=== PATIENT | female | born 1990 | race Hispanic/Latino ===

== ENCOUNTER 2017-01-31 13:05 | Outpatient (CLI) | payer MEDICAID ==
[2017-01-31 13:56] VITALS: BP 119/75
[2017-01-31] MEDS ORDERED: LACTATED RINGERS 500 ML IV ONE (13:58)
--- NOTE | 2017-02-01 07:49 | Ultrasound Report ---
Limited OB sonogram: History: R/O PROM. Findings: Gestation: Single Position: Breech Amniotic Fluid: BAYRON = 16.6 cm Heart Rate: 173 BPM
== END 2017-01-31 16:30 | disposition home or self-care (01) ==
LOC: TRG 13:05
PROVIDERS: ATTEND Obstetrics & Gynecology
DX: O32.1XX0 Maternal care for breech presentation, not applicable or unspecified (principal); Z3A.27 27 weeks gestation of pregnancy
CPT/HCPCS: 59025; 76815

== ENCOUNTER 2017-04-12 11:39 | Outpatient (CLI) | payer MEDICAID ==
[2017-04-12 12:01] VITALS: BP 117/74
== END 2017-04-12 12:27 | disposition home or self-care (01) ==
LOC: TRG 11:39
PROVIDERS: ATTEND Obstetrics & Gynecology
DX: O47.1 False labor at or after 37 completed weeks of gestation (principal); Z3A.37 37 weeks gestation of pregnancy
CPT/HCPCS: 59025

== ENCOUNTER 2017-04-20 17:58 | Inpatient (IN) | payer MEDICAID ==
[2017-04-20] MEDS ORDERED: LACTATED RINGERS 1,000 ML ONE (20:19)
--- NOTE | 2017-04-20 20:31 | Anesthesia Consultation ---
Anesthesia Consult and Med Hx Date of service: 04/20/17 - Airway Anesthetic Teeth Evaluation: Good ROM Head & Neck: Adequate Mental/Hyoid Distance: Adequate Mallampati Class: Class II Intubation Access Assessment: Probably Good - Pulmonary Exam CTA: Yes - Cardiac Exam Cardiac Exam: RRR - Pre-Operative Health Status ASA Pre-Surgery Classification: ASA2 Proposed Anesthetic Plan: Spinal - Pulmonary Hx Asthma: No - Cardiovascular System Hx Hypertension: No - Central Nervous System Hx Seizures: No Hx Psychiatric Problems: No - Endocrine Hx Renal Disease: No Hx Hypothyroidism: No Hx Hyperthyroidism: No - Hematic Hx Anemia: No Hx Sickle Cell Disease: No - Other Systems Hx Alcohol Use: No
--- NOTE | 2017-04-20 20:31 | Anesthesia Day of Surgery ---
Anesthesia Day of Surgery - Day of Surgery Patient Examined: Yes Patient H&P Reviewed: Yes Patient is NPO: Yes
[2017-04-20 20:42] LABS: Basophils % (Auto) 0.1 % (0.0-1.8); Eosinophils % (Auto) 0.8 % (0.0-4.3); Hematocrit 36.5 % (30.3-42.9); Hemoglobin 12.5 gm/dl (10.1-14.3); Mean Corpuscular HGB Conc 34 % (30-34); Mean Corpuscular Hemoglobin 30 pg (28-32); Mean Corpuscular Volume 87 fl (79-97); Platelet Count 286 K/mm3 (140-440); Red Blood Count 4.21 M/mm3 (3.65-5.03); Red Cell Distribution Width 13.6 % (13.2-15.2); White Blood Count 11.3 K/mm3 (4.5-11.0)
[2017-04-20] MEDS ORDERED: MORPHINE ONE (20:44)
--- NOTE | 2017-04-20 20:50 | History and Physical Report ---
History of Present Illness Date of examination: 04/20/17 History of present illness: Patient presented to labor and delivery complaints of the contractions throughout the day. Cervical exam by triage nurse revealed the patient was 5 cm still and breech presentation. Patient's course had been complicated by breech presentation and placement scheduled for primary's bilateral tubal ligation on April 25 we'll admit and perform Menstrual History Regularity: regular Menses every: 28 days Duration: 5 LMP: 07/26/2016 LMP reliability: definite LMP character: normal test type: urine test Date: 11/13/2016 BC at conception: none Planned ? no EDC Calculations LMP: 05/02/2017 EDC Confirmation: 05/02/2017 Past History : 3 Term Births: 1 Premature Births: 1 Living Children: 2 Para: 2 # 1 Delivery date: 2010 Weeks Gestation: 38 labor: yes Delivery type: [place] [facility] [place] Sex: Female weight: 6-3 # 2 Delivery date: 2014 Weeks Gestation: 34 labor: yes Delivery type: Delivery [place] [facility] [place] Sex: Male weight: 5-8 Comments: PROM Past Medical History: Bicornuate uterus Family History Summary: Other family member - Has No Family History of Uterine Cancer - Entered On: Other family member - Has No Family History of Stomach Cancer - Entered On: Other family member - Has No Family History of Small Bowel Cancer - Entered On: 03/19/2017 Other family member - Has No Family History of Pancreatic Cancer - Entered On: 03/19/2017 Other family member - Has No Family History of Ovarvian Cancer - Entered On: Other family member - Has No Family History of Kidney/Urinary Tract Cancer - Entered On: 03/19/2017 Other family member - Has No Family History of DVT/PE on OCP - Entered On: 03/19 Other family member - Has No Family History of Colon Cancer - Entered On: 2016 Other family member - Has No Family History of Breast Cancer - Entered On: 03/19 Other family member - Has No Family History of Brain Cancer - Entered On: 2016 Other family member - Has No Family History of Biliary Tract Cancer - Entered On : 03/19/2017 Aunt - Has Family History of Cervical Cancer - paternal - Entered On: 03/19/2017 Social History: Patient is single Smoking History: Patient has never smoked. Risk Factors: Smoked Tobacco Use: Never smoker Drug use: no Alcohol use: no Exercise: no Dietary Counseling: pn yes Past Medical History Abnormal PAP: negative Social Hx: Patient is single Smoking History: Patient has never smoked. Infection History Hx of STD: none Personal hx. of genital herpes: no Partner hx. of genital herpes: no Varicella/Chicken Pox Status: Unknown TB Risk: no Genetic History Congenital Heart Defect: Mom: no Dad: no Nely Disease: Mom: no Dad: no Thalassemia Mom: no Dad: no Neural Tube Defect Mom: no Dad: no Down's Syndrome Mom: no Dad: no Rosendo-Sachs Mom: no Dad: no Sickle Cell Disease/Trait Mom: no Dad: no Hemophilia Mom: no Dad: no Muscular Dystrophy Mom: no Dad: no Cystic Fibrosis Mom: no Dad: no [facility] Chorea Mom: no Dad: no Mental Retardation Mom: no Dad: no Fragile X Mom: no Dad: no Other Genetic/Chromosomal Disorder Mom: no Dad: no Child w/other defect Mom: no Dad: no Enviromental Exposures Enviromental Exposures Reviewed Xray Exposure: no Medication, drug, or alcohol use since LMP: no Chemical/Other Exposure: no Exposure to Cat Liter: no Hx of Parvovirus (Fifth Disease): no Current Allergies (reviewed today): No known allergies Past History Past Medical History: other (See HPI) Past Surgical History: other (See HPI) 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) Family/Genetic History: other (See HPI) Social history: other (See HPI) - Obstetrical History Expected Date of Delivery: 05/02/17 Actual Gestation: 38 Week(s) 2 Day(s) : 3 Para: 2 Hx # Term Pregnancies: 2 Number of Pregnancies: 0 Spontaneous Abortions: 0 Induced : 0 Number of Living Children: 2 Medications and Allergies Allergies Allergy/AdvReac Type Severity Reaction Status Date / Time No Known Allergies Allergy Unverified 01/31/17 13:58 Home Medications Medication Instructions Recorded Confirmed Last Taken Type Patricia 250 mg IM 1XW 01/31/17 01/31/17 01/25/17 History Pnv No.95/Ferrous Fum/Folic AC 1 each PO DAILY 01/31/17 01/31/17 1 Day Ago History [ Caplet] ~01/30/17 Active Meds: Active Medications Citric Acid/Sodium Citrate (Bicitra) 30 ml PO ONCE ONE Stop: 04/20/17 21:01 Famotidine (Pepcid) 20 mg IV ONCE ONE Stop: 04/20/17 21:01 Cefazolin Sodium (Ancef/Sterile Water 2 Gm/20 Ml) 2 gm in 20 mls @ 80 mls/hr IV PREOP NR PRN Reason: Protocol Stop: 04/21/17 23:45 Lactated Ringer's (Lactated Ringers) 1,000 mls @ 2,250 mls/hr IV PREOP JULEE Stop: 04/21/17 21:27 Oxytocin/Sodium Chloride (Pitocin/Ns 20 Unit/1000ml Drip) 20 units in 1,000 mls @ 0 mls/hr IV TITR JULEE PRN Reason: As Directed Metoclopramide HCl (Reglan) 10 mg IV ONCE ONE Stop: 04/20/17 21:01 - Vital Signs Vital signs: Vital Signs Pulse Pulse Ox 89 98 04/20/17 18:16 04/20/17 18:16 Temp Pulse Resp BP Pulse Ox 98 F 94 H 16 117/67 98 04/20/17 18:23 04/20/17 19:51 04/20/17 18:23 04/20/17 18:18 04/20/17 19:51 - Physical Exam Breasts: Positive: deferred Cardiovascular: Regular rate Lungs: Positive: Normal air movement Abdomen: Positive: normal appearance Genitourinary (Female): Positive: normal external genitalia Vagina: Positive: normal moisture Cervix: Positive: other (per RN) Extremities: Positive: edema - Obstetrical FHR: category 1 Uterine Contraction Pattern: Irregular Uterine Tone Measurement Phase: Resting Results Result Diagrams: 04/20/17 20:00 Abnormal lab results 04/20/17 Range/Units 20:00 WBC 11.3 H (4.5-11.0) K/mm3 Seg Neutrophils % 71.5 H (40.0-70.0) % Seg Neutrophils # 8.1 H (1.8-7.7) K/mm3 All other labs normal. Assessment and Plan - Patient Problems (1) 38 weeks gestation of Current Visit: Yes Status: Acute (2) Encounter for sterilization Current Visit: Yes Status: Acute Plan to address problem: Patient desires permanent sterilization. She declined temporary contraceptives. She understands the risks of the surgery include bleeding infection possible damage to bowel bladder or ureters. She understands that this surgery would make her permanently sterile. She also understands the approximate 1% failure rate. The patient understands all the above and desires to proceed. (3) Bicornate uterus Current Visit: Yes Status: Chronic (4) Breech presentation Current Visit: Yes Status: Acute Qualifiers: Fetus number: single or unspecified fetus Qualified Code(s): O32.1XX0 - Maternal care for breech presentation, not applicable or unspecified Plan to address problem: Patient informed the risks of the surgery include bleeding possibly bleeding heavy enough to require blood transfusion, infection possible damage to bowel bladder ureter. All questions answered. Patient agrees to proceed
[2017-04-20] MEDS ORDERED: NACL 0.9% IR ONE (21:00)
[2017-04-20] MEDS ORDERED: WATER FOR IRRIG STERILE IR ONE (21:00)
[2017-04-20] MEDS ORDERED: LACTATED RINGERS 1,000 ML IV SCH (21:00)
[2017-04-20] MEDS ORDERED: ANCEF/STERILE WATER 2 GM/20 ML 2 GM/20 ML SYRINGE IV NR (21:00)
[2017-04-20] MEDS ORDERED: PITOCin/NS 20 UNIT/1000ML DRIP 20 UNITS/1,000 ML BAG IV SCH ×2 (21:00→23:43)
[2017-04-20] MEDS ORDERED: REGLAN IV ONE (21:00)
[2017-04-20] MEDS ORDERED: PEPCID IV ONE (21:00)
[2017-04-20] MEDS ORDERED: BICITRA PO ONE (21:00)
[2017-04-20] MEDS ORDERED: ANCEF/STERILE WATER 2 GM/20 ML IV ONE (21:02)
[2017-04-20] MEDS ORDERED: ZOFRAN ONE (21:44)
[2017-04-20] MEDS ORDERED: TORADOL ONE (22:16)
--- NOTE | 2017-04-20 22:26 | Operative Report ---
Operative Report Operative Report: Date of procedure: 04/20/2017 Pre-operative diagnosis: Intrauterine at 38 weeks with breech presentation, in active labor, bicornuate uterus and desires permanent sterilization Post-operative diagnosis: Same Procedure name(s): Primary low transverse section with bilateral tubal ligation Surgeon: Stuart Alaniz MD Adult High School Instructor: JAMMIE Anesthesia: Spinal EBL: 800 mL Complications: Mesosalpinx bleeding Findings: Patient with a bicornuate uterus normal appearing tubes and ovaries bilaterally had a male breech presentation nuchal cord 1 weight 6 lbs. 7 oz. Apgars 8 at 1 minute 9 at 5 minutes Specimen(s): Portion the right and left fallopian tubes Procedure: The patient was brought to the operating room. A spinal was placed without any complications. She was then placed in left lateral tilt. Prepped and draped in the usual sterile manner. After testing for adequate anesthesia level, a Pfannenstiel incision was made through her previous scar. This incision was taken down to the fascia. The fascia was then nicked in the midline. This incision was extended out laterally with Buck scissors. The fascia was then sharply and bluntly from the underlying rectus muscles. The rectus muscles were bluntly and sharply . The peritoneum was then entered with the coach operator's fingers. This incision was spread vertically with care not to damage the bladder below. The bladder flap was then formed sharply and bluntly with Metzenbaum scissors. The Dwayne self- retaining tractor was then placed without any difficulty. A transverse incision was made in lower uterine segment. This incision was extended laterally with the operators fingers. The amniotic sac was then entered bluntly with the coach operator's fingers. The infant was delivered from the double footling breech position. Both feet were grasped and pulled through the uterine incision the reach was then wrapped with a wet lap progressively the torso was delivered with sweeping over each shoulder flexing each arm and delivering easily patient did have a nuchal cord which the after coming head was delivered through easily without complication. Bulb suction on the mother' s abdomen. Cord was double clamped and cut. The infant was then passed to the nursery personnel who were in attendance. The above scores were given by the nursery personnel. The placenta was then bluntly removed. The uterus was then externalized and wiped clean the remaining products. The uterine incision was closed in layers. The first incision was closed in a locking manner using 0 Vicryl. This was followed by imbricating stitch also with 0 Vicryl. Attention was then switched to the patient's fallopian tubes. Each fallopian tube was identified by its fimbriated end. A portion of each tube was grabbed with the Fatmata clamp approximately 2-3 cm from the cornua. Each loop was double ligated with 0 plain suture. The loop were cut with Metzenbaum scissors. Each stump was found to be hemostatic and cauterized with the Bovie. Attention was then switched back to the uterine closure. This closure was hemostatic. The bladder flap was copiously irrigated and found to be hemostatic. The pelvis was copiously irrigated and found to be hemostatic. Attempt to place the uterus back in to the abdomen did have a mesial salpinx blade on the right fallopian tube which was resolved with the Cesar stitches of 3 -0 Vicryl sutures on each of the stumps of the tube had with The movement of the uterus The uterus was then placed back to the patient's abdomen. The retractors were removed. The rectus muscles were inspected and found to be hemostatic. The tubal stumps were again inspected and found be hemostatic. The fascia was then closed in a running manner using 0 Vicryl. This incision was hemostatic irrigation Bovie. The skin was reapproximated with 4-0 Vicryl subcuticularly. The patient tolerated procedure well. Her urine was clear. The was admitted to the well baby nursery. The patient was accompanied to recovery room in good condition. Instrument count correct 3.
[2017-04-20] MEDS ORDERED: NARCAN 0.4 MG/1 ML IV PRN ×2 (22:30→23:43)
--- NOTE | 2017-04-20 22:30 | Post Anesthesia Evaluation ---
- Post Anesthesia Evaluation Patient Participated: Yes Airway Patent: Yes Stable Respiratory Function: Yes Nausea/Vomiting: No Temp > 96.8F: Yes Pain Manageable: Yes Adequeate Hydration: Yes Anesthesia Complications: No Block Receding Appropriately: Yes Patient on Ventilator: No
[2017-04-20] MEDS ORDERED: MORPHINE IV PRN (22:32)
[2017-04-20] MEDS: MORPHINE IV PRN ×2 (22:45→23:00)
[2017-04-20] MEDS ORDERED: SODIUM CHLORIDE FLUSH SYRINGE 10 ML IV NR ×2 (23:00→23:43)
[2017-04-20] MEDS ORDERED: LANSINOH TP PRN (23:43)
[2017-04-20] MEDS ORDERED: TUCKS PAD TP PRN (23:43)
[2017-04-20] MEDS ORDERED: MILK OF MAGNESIA PO PRN (23:43)
[2017-04-20] MEDS ORDERED: ANCEF/NS 1 GM/50 ML 1 GM/50 ML BAG IV SCH (23:43)
[2017-04-20] MEDS ORDERED: D5LR 1,000 ML IV SCH (23:43)
[2017-04-20] MEDS ORDERED: MYLICON PO PRN (23:43)
[2017-04-20] MEDS ORDERED: TORADOL IV PRN (23:43)
[2017-04-20] MEDS ORDERED: NORCO 5/325 PO PRN (23:43)
[2017-04-21] MEDS ORDERED: ZOFRAN IV PRN (00:22)
[2017-04-21] MEDS: BENADRYL PO PRN ×3 (00:44→14:15)
[2017-04-21 01:23] LABS: Hematocrit 31.4 % (30.3-42.9); Hemoglobin 10.6 gm/dl (10.1-14.3)
[2017-04-21] MEDS: ceFAZolin 1 GM in NACL 0.9% 20 ML IV SCH ×2 (03:37→12:00)
[2017-04-21] MEDS ORDERED: BOOSTRIX IM ONE (06:00)
[2017-04-21] MEDS: TORADOL IV PRN ×2 (09:31→15:58)
[2017-04-21 10:44] LABS: Hematocrit 29.9 % (30.3-42.9); Hemoglobin 10.1 gm/dl (10.1-14.3)
--- NOTE | 2017-04-21 11:21 | Progress Note ---
Assessment and Plan Patient doing well this morning, ambulating to bathroom. c/o itching not relieved by Benadryl. Lochia scant, VSSAF, H&H dropped to 10.1/29.9 - asymptomatic. Will try nubain for itching. Continue postop pathway. Advance diet and activity as tolerated. - Patient Problems (1) Anemia due to blood loss, acute Current Visit: Yes Status: Acute (2) delivery delivered Current Visit: Yes Status: Acute Subjective - Subjective Date of service: 04/21/17 Principal diagnosis: postop day # 1 s/p primary c/s for breech w/ BTL Patient reports: appetite normal, voiding normally, pain well controlled, ambulating normally, no dizzy ambulation, no flatus, no nauseated [place]: doing well, nursing well Objective - Vital Signs Latest vital signs: Vital Signs Temp Pulse Resp BP BP Pulse Ox 04/21/17 08:24 98.5 F 72 18 105/58 04/21/17 05:49 98.0 F 74 20 122/76 97 04/21/17 02:49 98.8 F 04/21/17 02:20 69 15 04/21/17 02:10 83 13 122/70 98 04/21/17 02:00 79 21 119/69 99 04/21/17 01:50 87 16 116/67 99 04/21/17 01:40 105 H 22 120/57 100 04/21/17 01:31 107 H 40 H 112/63 100 04/21/17 01:21 114 H 04/21/17 00:39 69 97 04/20/17 23:27 61 11 L 109/69 98 04/20/17 23:25 64 10 L 109/69 98 04/20/17 23:20 65 11 L 105/70 98 04/20/17 23:15 62 11 L 114/68 98 04/20/17 23:10 97.8 F 61 11 L 105/49 99 04/20/17 23:05 69 13 115/63 99 04/20/17 23:00 65 11 L 106/63 98 04/20/17 22:55 64 12 109/69 99 04/20/17 22:51 64 11 L 105/50 98 04/20/17 22:45 61 11 L 109/69 99 04/20/17 22:40 66 10 L 105/66 100 04/20/17 22:35 71 14 113/69 99 04/20/17 22:30 63 12 111/68 100 04/20/17 22:26 69 15 100 04/20/17 22:25 97.7 F 04/20/17 19:51 94 H 98 04/20/17 19:46 95 H 98 04/20/17 19:41 86 98 04/20/17 19:36 87 99 04/20/17 19:31 85 98 04/20/17 19:26 88 97 04/20/17 19:21 81 98 04/20/17 19:16 98 H 98 04/20/17 19:11 81 98 04/20/17 19:06 81 98 04/20/17 19:01 81 98 04/20/17 18:56 83 98 04/20/17 18:51 108 H 98 04/20/17 18:46 92 H 98 04/20/17 18:41 85 97 04/20/17 18:36 85 97 04/20/17 18:31 82 98 04/20/17 18:26 97 H 98 04/20/17 18:23 98 F 16 04/20/17 18:21 89 97 04/20/17 18:18 86 117/67 04/20/17 18:16 89 98 Intake and Output 04/20/17 04/21/17 04/21/17 23:59 07:59 15:59 Intake Total 2200 120 120 Output Total 230 400 700 Balance 1970 -280 -580 Intake: IV 2200 Oral 120 Intake, Free Water 120 Output: Urine 230 400 700 Indwelling Catheter 400 700 Other: Total, Intake Amount 120 Total, Output Amount 400 700 Weight 79.379 kg Estimated Blood Loss 800 - Exam Breasts: Present: normal, Cardiovascular: Present: Regular rate Lungs: Present: Clear to auscultation, Normal air movement Abdomen: Present: normal appearance, soft, normal bowel sounds Vulva: both: normal Uterus: Present: normal, firm, fundal height at umbilicus Extremities: Present: normal Deep Tendon Reflex Grade: Normal +2 Incision: Present: normal, dry, dressed (rn to remove today) - Labs Labs: Abnormal lab results 04/20/17 04/21/17 Range/Units 20:00 10:08 WBC 11.3 H (4.5-11.0) K/mm3 Hct 29.9 L (30.3-42.9) % Seg Neutrophils % 71.5 H (40.0-70.0) % Seg Neutrophils # 8.1 H (1.8-7.7) K/mm3
[2017-04-21] MEDS ORDERED: NUBAIN IV ONE (12:00)
[2017-04-22] MEDS: PERCOCET 5/325 PO PRN ×3 (05:11→16:45)
--- NOTE | 2017-04-22 06:00 | Progress Note ---
Assessment and Plan Patient doing well, c/o some left nipple pain from poor latch. VSSAF, lochia scat, H&H stable - asymptomatic for anemia. continue postop pathway and anticipate d/c home tomorrow. - Patient Problems (1) Anemia due to blood loss, acute Current Visit: Yes Status: Acute (2) delivery delivered Current Visit: Yes Status: Acute Subjective - Subjective Date of service: 04/22/17 Principal diagnosis: postop day # 2 s/p primary c/s for breech w/ BTL Patient reports: appetite normal, voiding normally, pain well controlled, flatus , ambulating normally, no dizzy ambulation, no nauseated : doing well, nursing well Objective - Vital Signs Latest vital signs: Vital Signs Temp Pulse Resp BP BP Pulse Ox 04/22/17 02:19 98.3 F 86 18 105/68 97 04/21/17 22:40 18 107/62 04/21/17 17:11 98.3 F 79 18 115/83 04/21/17 12:42 97.5 F L 102 H 20 144/97 04/21/17 08:24 98.5 F 72 18 105/58 Intake and Output 04/21/17 04/21/17 04/22/17 15:59 23:59 07:59 Intake Total 600 360 Balance 600 360 Intake: Oral 600 Intake, Free Water 360 Other: Total, Intake Amount 120 # Voids Void 900 2 - Exam Breasts: Present: normal, Cardiovascular: Present: Regular rate Lungs: Present: Clear to auscultation, Normal air movement Abdomen: Present: normal appearance, soft, normal bowel sounds Vulva: both: normal Uterus: Present: normal Extremities: Present: normal Incision: Present: normal, dry, intact - Labs Labs: Abnormal lab results 04/21/17 Range/Units 10:08 Hct 29.9 L (30.3-42.9) %
[2017-04-22] MEDS: MOTRIN PO PRN (22:58)
--- NOTE | 2017-04-23 08:38 | Discharge Summary ---
Providers - Providers Date of Admission: 04/20/17 20:58 Date of discharge: 04/23/17 Attending physician: NICOLE ELO 04/20/17 23:43 Consult to Motorcoach Operator [CONS] Routine Reason For Exam: Primary care physician: NICOLE LEO Hospitalization Reason for admission: other (SEE H&P) Delivery: Procedure: section Procedure details: SEE OP NOTE Incision: normal, dry, intact complications: none Discharge diagnosis: IUP at term delivered baby: male Hospital course: PT ADMITTED FOR SCHEDULED C/S. PT POST OP COURSE HAS NOT BEEN COMPLICATED. WILL D/C HOME TODAY. Condition at discharge: Good Disposition: DC-01 TO HOME OR SELFCARE Plan - Discharge Medications Prescriptions: Ferrous Sulfate [Feosol 325 MG tab] 325 mg PO BID #60 tablet Ibuprofen [Motrin 800 MG tab] 800 mg PO Q6H PRN #30 tablet PRN Reason: Pain oxyCODONE /ACETAMINOPHEN [Percocet 5/325 mg] 1 - 2 tab PO Q4H PRN #30 tablet PRN Reason: Pain, Moderate - Provider Discharge Summary Activity: routine, no sex for 6 weeks, no heavy lifting 4 weeks, no strenuous exercise Diet: routine Instructions: routine Additional instructions: [] Smoking cessation referral if applicable(refer to patient education folder for contact #) [] Refer to [facility]'s [facility] Booklet Call your doctor immediately for: * Fever > 100.5 * Heavy vaginal bleeding ( >1 pad per hour) * Severe persistent headache * Shortness of breath * Reddened, hot, painful area to leg or breast * Drainage or odor from incision. * Keep incision clean and dry at all times and follow doctor's instructions regarding bathing/showering - Follow up plan Follow up: NICOLE LEO MD [Primary Care Provider] - 7 Days
[2017-04-23] MEDS: PERCOCET 5/325 PO PRN ×2 (10:25→16:05)
[2017-04-23 13:30] VITALS: BP 110/60
[2017-04-23] MEDS: MOTRIN PO PRN (15:45)
[2017-04-23] MEDS ORDERED: PERCOCET 5/325 ONE (16:05)
== END 2017-04-23 16:30 | disposition home or self-care (01) | DRG 765 ==
LOC: TRG 17:58 → APU 20:58 → TRG 20:58 → OB 23:45
PROVIDERS: ADMIT Obstetrics & Gynecology; ATTEND Obstetrics & Gynecology
PROC: 10D00Z1 Extraction of Products of Conception, Low, Open Approach (ICD-10-PCS; principal; 2017-04-20)
PROC: 0UT70ZZ Resection of Bilateral Fallopian Tubes, Open Approach (ICD-10-PCS; 2017-04-20)
DX: O32.1XX0 Maternal care for breech presentation, not applicable or unspecified (principal); D62 Acute posthemorrhagic anemia; O99.02 Anemia complicating childbirth; O34.03 Maternal care for unspecified congenital malformation of uterus, third trimester; Z3A.38 38 weeks gestation of pregnancy; Z37.0 Single live birth; Z79.899 Other long term (current) drug therapy; Z30.2 Encounter for sterilization; Q51.3 Bicornate uterus
CPT/HCPCS: 36415; 85014; 85018; 85025; 86850; 86900; 86901; 88302; 90471; 90715; 99211; C1765; G0463; J0690; J1885; J2270; J2300; J2405; J2590; J2765; J7120; J7121